=== PATIENT | female | born 1955 | race Caucasian/White ===

== ENCOUNTER 2020-01-07 10:03 | Outpatient (CLI) | payer MEDICARE ==
[2020-01-07 17:23] LABS: BASOPHILS # (AUTO) 0.1 10^3/uL (0.0-0.1); BASOPHILS % (AUTO) 0.9 %; EOSINOPHILS # (AUTO) 0.2 10^3/uL (0.0-0.7); EOSINOPHILS % (AUTO) 4.3 %; HGB - HEMOGLOBIN 10.9 g/dL (12.0-16.0); LYMPHOCYTES # (AUTO) 1.3 10^3/uL (1.5-3.5); LYMPHOCYTES % (AUTO) 23.6 %; MEAN CORPUSCULAR HGB CONC 28.7 g/dL (32.0-36.0); MEAN CORPUSCULAR VOLUME 94.1 fL (81.0-99.0); MEAN PLATELET VOLUME 10.6 fL (7.9-10.8); MONOCYTES # (AUTO) 0.4 10^3/uL (0.0-1.0); MONOCYTES % (AUTO) 7.5 %; NEUTROPHILS # (AUTO) 3.5 10^3/uL (1.5-6.6); NEUTROPHILS % (AUTO) 63.3 %; PLT - PLATELET COUNT 222 10^3/uL (130-450); RED BLOOD COUNT 4.04 10^6/uL (4.20-5.40); RED CELL DISTRIBUTION WIDTH 15.3 % (12.0-15.0); WHITE BLOOD COUNT 5.6 x10^3/uL (4.8-10.8)
[2020-01-07 17:54] LABS: ALBUMIN 4.1 g/dL (3.2-5.5); ALBUMIN/GLOBULIN RATIO 1.7 (1.0-2.2); ALKALINE PHOSPHATASE 36 IU/L (42-121); ALT ALANINE AMINOTRANSFERASE 13 IU/L (10-60); AST ASPARTATE AMINOTRANSFERASE 27 IU/L (10-42); BILIRUBIN,TOTAL 0.5 mg/dL (0.2-1.0); BUN - BLOOD UREA NITROGEN 15 mg/dL (6-20); CARBON DIOXIDE - CO2 36 mmol/L (21-32); CHLORIDE 95 mmol/L (101-111); CHOL/HDL RATIO 3.5 (<4.4); CHOLESTEROL 229 mg/dL; CREATININE 0.6 mg/dL (0.4-1.0); GFR - MDRD 100 (>89); GLUCOSE 148 mg/dL (70-100); HDL CHOLESTEROL 65 mg/dL; LDL CHOLESTEROL,CALCULATED 144 mg/dL; LDL/HDL RATIO 2.2 (<4.4); SODIUM 138 mmol/L (135-145); TOTAL PROTEIN 6.5 g/dL (6.7-8.2); VLDL CHOLESTEROL 20 mg/dL
[2020-01-07 18:35] LABS: HB2 TOTAL 10.9 g/dL; HEMOGLOBIN A1C 0.44 g/dL; HEMOGLOBIN A1C % 5.8 % (4.6-6.2)
[2020-01-07 19:31] LABS: PLATELET ESTIMATE, MANUAL NORMAL (130-450,000) (NORMAL); PLATELET MORPHOLOGY NORMAL APPEARANCE (NORMAL)
== END 2020-01-07 10:04 | disposition home or self-care (01) ==
LOC: LAB.S 10:03
PROVIDERS: ATTEND Internal Medicine
DX: R63.4 Abnormal weight loss (principal); Z79.899 Other long term (current) drug therapy; G47.09 Other insomnia; J30.9 Allergic rhinitis, unspecified; J44.9 Chronic obstructive pulmonary disease, unspecified
CPT/HCPCS: 36415; 80053; 80061; 81003; 83036; 83721; 84443; 85025

== ENCOUNTER 2020-07-14 08:21 | Outpatient (CLI) | payer MEDICARE ==
[2020-07-14 15:24] LABS: BASOPHILS # (AUTO) 0.1 10^3/uL (0.0-0.1); BASOPHILS % (AUTO) 0.9 %; EOSINOPHILS # (AUTO) 0.4 10^3/uL (0.0-0.7); EOSINOPHILS % (AUTO) 5.7 %; HGB - HEMOGLOBIN 11.5 g/dL (12.0-16.0); LYMPHOCYTES # (AUTO) 1.7 10^3/uL (1.5-3.5); LYMPHOCYTES % (AUTO) 24.1 %; MEAN CORPUSCULAR HEMOGLOBIN 26.1 pg (27.0-31.0); MEAN CORPUSCULAR HGB CONC 26.9 g/dL (32.0-36.0); MEAN CORPUSCULAR VOLUME 96.8 fL (81.0-99.0); MEAN PLATELET VOLUME 10.3 fL (7.9-10.8); MONOCYTES # (AUTO) 0.4 10^3/uL (0.0-1.0); MONOCYTES % (AUTO) 6.4 %; NEUTROPHILS # (AUTO) 4.3 10^3/uL (1.5-6.6); NEUTROPHILS % (AUTO) 62.6 %; PLT - PLATELET COUNT 235 10^3/uL (130-450); RED BLOOD COUNT 4.41 10^6/uL (4.20-5.40); WHITE BLOOD COUNT 6.9 x10^3/uL (4.8-10.8)
[2020-07-14 16:09] LABS: ALBUMIN 4.3 g/dL (3.2-5.5); ALBUMIN/GLOBULIN RATIO 1.4 (1.0-2.2); BILIRUBIN,TOTAL 0.5 mg/dL (0.2-1.0); CALCIUM 9.5 mg/dL (8.5-10.3); CREATININE 0.5 mg/dL (0.4-1.0); TOTAL PROTEIN 7.3 g/dL (6.7-8.2)
[2020-07-14 16:27] LABS: PLATELET ESTIMATE, MANUAL NORMAL (130-450,000) (NORMAL); PLATELET MORPHOLOGY NORMAL APPEARANCE (NORMAL); RBC MORPHOLOGY (MULTIPLE) 2+ HYPOCHROMASIA (NORMAL)
== END 2020-07-14 08:22 | disposition home or self-care (01) ==
LOC: LAB.S 08:21
PROVIDERS: ATTEND Family Medicine
DX: D50.9 Iron deficiency anemia, unspecified (principal); R63.4 Abnormal weight loss; E74.9 Disorder of carbohydrate metabolism, unspecified; Z79.899 Other long term (current) drug therapy; R06.02 Shortness of breath
CPT/HCPCS: 36415; 80053; 84443; 85025

== ENCOUNTER 2020-08-24 13:04 | Emergency (ER) | payer MEDICARE ==
--- NOTE | 2020-08-24 13:25 | ED Physician Documentation ---
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 No increase in chronic cough. No pedal edema or calf pain. Sent from the clinic because she had complained of chest pain. To me she denies chest pain but has some mild discomfort after coughing. Review of Systems Ten Systems: 10 systems reviewed and negative Constitutional: denies: Fever, Chills Nose: denies: Rhinorrhea / runny nose Cardiac: denies: Chest pain / pressure, Palpitations Respiratory: reports: Dyspnea, Cough GI: denies: Abdominal Pain PD PAST MEDICAL HISTORY - Present Medications Home Medications: Ambulatory Orders Medication Instructions Recorded Confirmed Budesonide/Formoterol Fumarate 1 DAILY 08/24/20 [Symbicort 160-4.5 Mcg Inhaler] Cetirizine HCl 1 tab DAILY 08/24/20 08/24/20 Citalopram Hydrobromide 10 mg DAILY 08/24/20 08/24/20 [Citalopram HBr] Ipratropium/Albuterol [Duoneb] 1 QID 08/24/20 Roflumilast [Daliresp] 500 mcg DAILY 08/24/20 08/24/20 Tiotropium [place] [Spiriva] 1 DAILY 08/24/20 predniSONE [Deltasone] 20 mg PO [id number] #21 tab 08/24/20 - Allergies Allergies/Adverse Reactions: Allergies Allergy/AdvReac Type Severity Reaction Status Date / Time No Known Drug Allergies Allergy Verified 08/24/20 13:17 PD ED PE NORMAL - Vitals Vital signs reviewed: Yes - General General: Alert and oriented X 3, Other (Appears chronically ill, but does not have labored breathing despite significant hypoxemia on 2 L nasal cannula) - HEENT HEENT: PERRL, EOMI - Neck Neck: Supple, no meningeal sign, No bony TTP - Cardiac Cardiac: RRR, No murmur - Respiratory Respiratory: No respiratory distress, Other (Quite diminished throughout) - Abdomen Abdomen: Non tender - Back Back: No CVA TTP, No spinal TTP - Derm Derm: Normal color, Warm and dry - Extremities Extremities: No edema, No calf tenderness / cord - Neuro Neuro: Alert and oriented X 3, Normal speech Results - Vitals Vitals: Vital Signs - 24 hr 08/24/20 08/24/20 13:11 13:45 Temperature 37.0 C Heart Rate 97 87 Respiratory 18 24 Rate Blood Pressure 81/60 L O2 Saturation 70 L Oxygen O2 Source Nasal cannula - EKG (time done) 1338 Rate: Rate (enter#) (84) Rhythm: NSR, LAE, ADEOLA [place]: Normal Ischemia: Other (Right ventricular hypertrophy with flat to slightly inverted T waves in the anterior precordium and lateral leads.) Computer interpretation: Agree with computer - Labs Labs: Laboratory Tests 08/24/20 08/24/20 08/24/20 13:40 13:40 13:40 WBC 6.1 RBC 3.89 L Hgb 10.6 L Hct 38.1 MCV 97.9 MCH 27.2 MCHC 27.8 L RDW 15.4 H Plt Count 238 MPV 10.0 Neut # (Auto) 4.3 Lymph # (Auto) 1.2 L [place] # (Auto) 0.5 Eos # (Auto) 0.1 Baso # (Auto) 0.0 Absolute Nucleated RBC 0.00 Nucleated RBC % 0.0 Manual Slide Review Indicated WBC Morphology NORMAL APPEARANCE Platelet Estimate NORMAL (130-450,000) Platelet Morphology NORMAL APPEARANCE RBC Morph Micro Appear 1+ HYPOCHROMASIA VBG pH VBG pCO2 VBG pO2 VBG HCO3 VBG Total CO2 VBG O2 Saturation VBG Base Excess Sodium 144 Potassium 3.6 Chloride 86 L Carbon Dioxide > 45 H* Anion Gap 9.0 BUN 21 H Creatinine 0.5 Estimated GFR (MDRD) 124 Glucose 130 H Calcium 9.9 Total Bilirubin 0.5 AST 42 ALT 86 H Alkaline Phosphatase 47 Troponin I High Sens 7.7 B-Natriuretic Peptide Total Protein 6.3 L Albumin 3.9 Globulin 2.4 Albumin/Globulin Ratio 1.6 08/24/20 08/24/20 13:40 13:40 WBC RBC Hgb Hct MCV MCH MCHC RDW Plt Count MPV Neut # (Auto) Lymph # (Auto) [place] # (Auto) Eos # (Auto) Baso # (Auto) Absolute Nucleated RBC Nucleated RBC % Manual Slide Review WBC Morphology Platelet Estimate Platelet Morphology RBC Morph Micro Appear VBG pH 7.335 VBG pCO2 96.3 H VBG pO2 44.4 VBG HCO3 50.2 H VBG Total CO2 53.2 H VBG O2 Saturation 80.7 H VBG Base Excess 20.0 H Sodium Potassium Chloride Carbon Dioxide Anion Gap BUN Creatinine Estimated GFR (MDRD) Glucose Calcium Total Bilirubin AST ALT Alkaline Phosphatase Troponin I High Sens B-Natriuretic Peptide 48 Total Protein Albumin Globulin Albumin/Globulin Ratio - Rads (name of study) CT chest Radiology: EMP read contemporaneously (No PE, likely pulmonary hypertension, emphysema, borderline enlarged mediastinal lymph nodes.) PD MEDICAL DECISION MAKING - ED course ED course: 64-year-old woman with severe COPD presents with increased shortness of breath. Very distant lung sounds. Did get some improvement with nebulizer here and also received IV steroids. No evidence of infection looking at labs or CT. No evidence of PE. She had a significant oxygen requirement. Her usual oxygen requirement is 2 L, she needed 4 L reliably here. I recommended admission for further evaluation and treatment which she refused. Her son was present for these conversations. She understands she is welcome to return at any time if worsening. Departure - Departure Disposition: 01 Home, Self Care Clinical Impression: Severe chronic obstructive pulmonary disease Condition: Good Record reviewed to determine appropriate education?: Yes Instructions: ED COPD Flare Prescriptions: predniSONE [Deltasone] 20 mg PO [id number] #21 tab Comments: As discussed I have recommended admission today given your increased oxygen requirements. Return anytime if you change your mind or worsen. Follow-up with primary care as soon as possible.
[2020-08-24] MEDS ORDERED: IPRATROPIUM/ALBUTEROL 3 ML NEB INH STA (13:32)
[2020-08-24] MEDS ORDERED: SODIUM CHLORIDE 0.9% 1,000 ML IV STA (13:32)
[2020-08-24] MEDS ORDERED: methylPREDNISolone SUCCINATE 125 MG/2 ML VIAL IVP STA (13:32)
[2020-08-24] MEDS ORDERED: IOVERSOL 320 100 ML VIAL IVP ONE ×2 (13:47→19:07)
[2020-08-24 14:15] LABS: BASOPHILS % (AUTO) 0.7 %; EOSINOPHILS # (AUTO) 0.1 10^3/uL (0.0-0.7); HGB - HEMOGLOBIN 10.6 g/dL (12.0-16.0); LYMPHOCYTES # (AUTO) 1.2 10^3/uL (1.5-3.5); MEAN CORPUSCULAR HEMOGLOBIN 27.2 pg (27.0-31.0); MEAN CORPUSCULAR HGB CONC 27.8 g/dL (32.0-36.0); MEAN CORPUSCULAR VOLUME 97.9 fL (81.0-99.0); MONOCYTES # (AUTO) 0.5 10^3/uL (0.0-1.0); MONOCYTES % (AUTO) 7.6 %; NEUTROPHILS # (AUTO) 4.3 10^3/uL (1.5-6.6); NEUTROPHILS % (AUTO) 70.5 %; PLT - PLATELET COUNT 238 10^3/uL (130-450); RED BLOOD COUNT 3.89 10^6/uL (4.20-5.40); RED CELL DISTRIBUTION WIDTH 15.4 % (12.0-15.0); WHITE BLOOD COUNT 6.1 x10^3/uL (4.8-10.8)
[2020-08-24 14:19] LABS: VBG PCO2 96.3 mmHg (41-51); VBG PH 7.335 (7.31-7.41); VBG PO2 44.4 mmHg (25-47); VBG TOTAL CO2 53.2 mmol/L (24-29)
[2020-08-24 14:23] LABS: PLATELET ESTIMATE, MANUAL NORMAL (130-450,000) (NORMAL); PLATELET MORPHOLOGY NORMAL APPEARANCE (NORMAL); RBC MORPHOLOGY (MULTIPLE) 1+ HYPOCHROMASIA (NORMAL)
[2020-08-24 14:26] LABS: ALBUMIN 3.9 g/dL (3.2-5.5); ALBUMIN/GLOBULIN RATIO 1.6 (1.0-2.2); ALKALINE PHOSPHATASE 47 IU/L (42-121); ALT ALANINE AMINOTRANSFERASE 86 IU/L (10-60); AST ASPARTATE AMINOTRANSFERASE 42 IU/L (10-42); BILIRUBIN,TOTAL 0.5 mg/dL (0.2-1.0); BUN - BLOOD UREA NITROGEN 21 mg/dL (6-20); CALCIUM 9.9 mg/dL (8.5-10.3); CHLORIDE 86 mmol/L (101-111); CREATININE 0.5 mg/dL (0.4-1.0); GLUCOSE 130 mg/dL (70-100); SODIUM 144 mmol/L (135-145); TOTAL PROTEIN 6.3 g/dL (6.7-8.2)
[2020-08-24 14:33] LABS: CARBON DIOXIDE - CO2 > 45 mmol/L (21-32)
--- NOTE | 2020-08-24 15:20 | CT Report ---
PROCEDURE: ANGIO CHEST W/WO INDICATIONS: dyspnea/hypoxemia, pe protocol CONTRAST: IV CONTRAST: Optiray 320 ml: 50 PO CONTRAST: *NO PO CONTRAST TECHNIQUE: After the administration of intravenous contrast, 2 mm thick sections acquired from the pulmonary api susanna to the posterior costophrenic angles. 3-dimensional maximum intensity projection (MIP) coronal a nd sagittal reformats were then acquired through the thorax. For radiation dose reduction, the follow ing was used: automated exposure control, adjustment of mA and/or kV according to patient size. COMPARISON: None FINDINGS: Image quality: Excellent. Pulmonary arteries: Pulmonary arteries demonstrate no intraluminal filling defects to suggest centr al pulmonary embolism. Slight prominent main pulmonary artery is seen measures up to 3 cm in diamete r at the level of bifurcation. Lungs and pleura: There is moderate centrilobular emphysema. Biapical scarring is seen. Scattered sca rring/atelectasis in periphery of bilateral lung corley also noted. No pleural effusions or pneumotho rax. Central and peripheral airways are patent. Mediastinum: Heart size is normal, without pericardial effusion. Mild enlarged mediastinal lymph nod es are seen measures up to 1 cm in short axis diameter precarinal space. Moderate atherosclerotic dis ease is seen. Thoracic aorta is normal in caliber and enhancement. Esophagus is normal in caliber, w ithout hiatal hernia. Bones and chest wall: No suspicious bony lesions. Ribs and thoracic spine appear intact throughout. The thyroid is normal. No axillary or supraclavicular adenopathy. Abdomen: Visualized upper abdominal solid organs appear normal in the early arterial phase of enhanc ement. IMPRESSION: 1. No evidence of pulmonary emboli. No thoracic aortic aneurysm or dissection. 2. Mildly prominent main pulmonary artery size, suggest clinical correlation for mild pulmonary vascu lar hypertension. 3. Moderate centrilobular emphysema and chronic interstitial lung parenchymal changes. No focal infil trate. No pleural effusion or pneumothorax. Airway is patent. 4. Borderline enlarged mediastinal lymph nodes measures up to 1 cm in size. Finding may represent mil d reactive lymphadenopathy. Moderate atherosclerotic disease. Reviewed by: Noah Greenwood MD on 08/24/2020 2:18 PM [facility] Approved by: Noah Greenwood MD on 08/24/2020 2:18 PM [facility] Station ID: [id number]
[2020-08-24 15:51] VITALS: BP 109/64
== END 2020-08-24 16:02 | disposition home or self-care (01) ==
LOC: ED 13:04
DX: J43.2 Centrilobular emphysema (principal); R09.02 Hypoxemia; I51.7 Cardiomegaly; Z99.81 Dependence on supplemental oxygen
CPT/HCPCS: 36415; 71275; 80053; 82803; 83880; 84484; 85025; 93005; 94640; 96374; 99284; Q9967

== ENCOUNTER 2020-12-02 12:20 | Outpatient (CLI) | payer MEDICARE ==
[2020-12-02 14:54] LABS: BASOPHILS % (AUTO) 0.7 %; EOSINOPHILS # (AUTO) 0.2 10^3/uL (0.0-0.7); EOSINOPHILS % (AUTO) 3.6 %; HGB - HEMOGLOBIN 11.1 g/dL (12.0-16.0); LYMPHOCYTES # (AUTO) 1.6 10^3/uL (1.5-3.5); LYMPHOCYTES % (AUTO) 26.4 %; MEAN CORPUSCULAR HEMOGLOBIN 27.3 pg (27.0-31.0); MEAN CORPUSCULAR HGB CONC 28.3 g/dL (32.0-36.0); MEAN CORPUSCULAR VOLUME 96.6 fL (81.0-99.0); MEAN PLATELET VOLUME 10.2 fL (7.9-10.8); MONOCYTES # (AUTO) 0.6 10^3/uL (0.0-1.0); MONOCYTES % (AUTO) 9.2 %; NEUTROPHILS # (AUTO) 3.7 10^3/uL (1.5-6.6); NEUTROPHILS % (AUTO) 59.9 %; PLT - PLATELET COUNT 199 10^3/uL (130-450); RED BLOOD COUNT 4.06 10^6/uL (4.20-5.40); RED CELL DISTRIBUTION WIDTH 14.6 % (12.0-15.0); WHITE BLOOD COUNT 6.1 x10^3/uL (4.8-10.8)
[2020-12-02 15:34] LABS: PLATELET ESTIMATE, MANUAL NORMAL (130-450,000) (NORMAL); PLATELET MORPHOLOGY NORMAL APPEARANCE (NORMAL)
== END 2020-12-02 12:21 | disposition home or self-care (01) ==
LOC: LAB.S 12:20
PROVIDERS: ATTEND Family Medicine
DX: D50.9 Iron deficiency anemia, unspecified (principal)
CPT/HCPCS: 36415; 85025

== ENCOUNTER 2021-01-05 06:25 | Emergency (ER) | payer MEDICARE ==
--- NOTE | 2021-01-05 07:57 | ED Physician Documentation ---
History of Present Illness - Stated complaint Stated Complaint: SOA - Chief complaint Chief Complaint: Resp - History obtained from History obtained from: Patient, Family - History of Present Illness Timing: Today Pain level max: 0 Pain level now: 0 - Additonal information Additional information: Patient is a 65-year-old female with end-stage COPD. Usually on 4 L of oxygen at home. She is accompanied by her son today. They checked her finger pulse oximeter today and it read 35. Patient states that she felt her normal. Was not having any difficulty breathing. No coughing. Nothing made it better or worse. The son states she did not appear blue. Her oxygen tank is full. Has a concentrator at home as well. No fevers. No cough. No increased work of breathing. Is not currently on steroids. Review of Systems Constitutional: denies: Fever, Chills GI: denies: Vomiting, Diarrhea Skin: denies: Rash Musculoskeletal: denies: Neck pain, Back pain Neurologic: denies: Headache PD PAST MEDICAL HISTORY - Past Medical History Past Medical History: Yes Respiratory: COPD - Past Surgical History Past Surgical History: Yes /[employer]: Mastectomy - Present Medications Home Medications: Ambulatory Orders Medication Instructions Recorded Confirmed Budesonide/Formoterol Fumarate 1 DAILY 08/24/20 [Symbicort 160-4.5 Mcg Inhaler] Cetirizine HCl 1 tab DAILY 08/24/20 08/24/20 Citalopram Hydrobromide 10 mg DAILY 08/24/20 08/24/20 [Citalopram HBr] Ipratropium/Albuterol [Duoneb] 1 QID 08/24/20 Roflumilast [Daliresp] 500 mcg DAILY 08/24/20 08/24/20 Tiotropium [place] [Spiriva] 1 DAILY 08/24/20 predniSONE [Deltasone] 10 mg PO [id number] #42 tab 01/05/21 - Allergies Allergies/Adverse Reactions: Allergies Allergy/AdvReac Type Severity Reaction Status Date / Time No Known Drug Allergies Allergy Verified 08/24/20 13:17 - Social History Does the pt smoke?: Yes Smoking Status: Current every day smoker PD ED PE NORMAL - Vitals Vital signs reviewed: Yes - General General: Alert and oriented X 3, No acute distress, Other (thin, Frail female) - HEENT HEENT: PERRL, Moist mucous membranes - Neck Neck: Supple, no meningeal sign - Cardiac Cardiac: RRR - Respiratory Respiratory: No respiratory distress, Other (Diminished breath sounds bilaterally but clear) - Abdomen Abdomen: Soft, Non tender, Non distended - Derm Derm: Warm and dry - Neuro Neuro: Alert and oriented X 3 - Psych Psych: Normal mood, Normal affect Results - Vitals Vitals: Vital Signs - 24 hr 01/05/21 01/05/21 01/05/21 06:27 06:51 08:18 Temperature 36.2 C L 36.2 C L Heart Rate 111 H 108 H Respiratory 22 25 H Rate Blood Pressure 99/56 L 119/63 O2 Saturation 100 92 01/05/21 01/05/21 01/05/21 08:58 10:00 11:00 Temperature Heart Rate 117 H 96 98 Respiratory 18 20 Rate Blood Pressure 118/59 L O2 Saturation 90 L 93 97 Oxygen O2 Source Nasal cannula Oxygen Flow Rate 3 - Labs Labs: Laboratory Tests 01/05/21 01/05/21 01/05/21 08:05 08:05 08:05 WBC 8.3 RBC 4.15 L Hgb 11.1 L Hct 41.0 MCV 98.8 MCH 26.7 L MCHC 27.1 L RDW 14.5 Plt Count 175 MPV 9.7 Neut # (Auto) 7.1 H Lymph # (Auto) 0.7 L [place] # (Auto) 0.4 Eos # (Auto) 0.1 Baso # (Auto) 0.0 Absolute Nucleated RBC 0.00 Nucleated RBC % 0.0 Manual Slide Review Indicated Platelet Estimate NORMAL (130-450,000) Platelet Morphology NORMAL APPEARANCE RBC Morph Micro Appear 1+ STOMATOCYTES Sodium 143 Potassium 5.1 H Chloride 89 L Carbon Dioxide 45 H* Anion Gap 9.0 BUN 22 H Creatinine 0.6 Estimated GFR (MDRD) 100 Glucose 114 H Lactic Acid 0.9 Calcium 10.0 Total Bilirubin 0.4 AST 27 ALT 15 Alkaline Phosphatase 59 Total Protein 7.5 Albumin 4.6 Globulin 2.9 Albumin/Globulin Ratio 1.6 Lipase 27 Urine Color Urine Clarity Urine pH Ur Specific [place] Urine Protein Urine Glucose (UA) Urine Ketones Urine Occult Blood Urine Nitrite Urine Bilirubin Urine Urobilinogen Ur Leukocyte Esterase Ur Microscopic Review Urine Culture Comments 01/05/21 10:44 WBC RBC Hgb Hct MCV MCH MCHC RDW Plt Count MPV Neut # (Auto) Lymph # (Auto) [place] # (Auto) Eos # (Auto) Baso # (Auto) Absolute Nucleated RBC Nucleated RBC % Manual Slide Review Platelet Estimate Platelet Morphology RBC Morph Micro Appear Sodium Potassium Chloride Carbon Dioxide Anion Gap BUN Creatinine Estimated GFR (MDRD) Glucose Lactic Acid Calcium Total Bilirubin AST ALT Alkaline Phosphatase Total Protein Albumin Globulin Albumin/Globulin Ratio Lipase Urine Color YELLOW Urine Clarity CLEAR Urine pH 6.0 Ur Specific [place] 1.020 Urine Protein NEGATIVE Urine Glucose (UA) NEGATIVE Urine Ketones NEGATIVE Urine Occult Blood NEGATIVE Urine Nitrite NEGATIVE Urine Bilirubin NEGATIVE Urine Urobilinogen 0.2 (NORMAL) Ur Leukocyte Esterase NEGATIVE Ur Microscopic Review NOT INDICATED Urine Culture Comments NOT INDICATED - Rads (name of study) cxr Radiology: Prelim report reviewed, EMP read contemporaneously, See rad report PD MEDICAL DECISION MAKING - ED course Complexity details: reviewed old records, reviewed results, re-evaluated patient, considered differential, d/w patient, d/w family ED course: 65-year-old female presents to the emergency department with hypoxia at home today. No hypoxia here. Ambulated in the emergency department and did not become hypoxic with her usual home oxygen. No acute laboratory findings. She did appear slightly dehydrated so she was given IV fluids. We will place her on a short course of steroids as well. No evidence of infection or pneumonia. Patient is well-appearing, nontoxic. Son is comfortable taking her home. Patient would like to go home. Patient and family counseled regarding signs and symptoms for which I believe and urgent re-evaluation would be necessary. Patient with good understanding of and agreement to plan and is comfortable going home at this time This document was made in part using voice recognition software. While efforts are made to proofread this document, sound alike and grammatical errors may occur. IMPRESSION: No acute cardiopulmonary abnormality. Hyperexpanded lungs can be seen in the setting of COPD. There is no significant discrepancy when compared with the overnight teleradiology report. Departure - Departure Disposition: 01 Home, Self Care Clinical Impression: Severe chronic obstructive pulmonary disease Condition: Good Instructions: ED COPD Flare Follow-Up: Tam Bhatti [Primary Care Provider] - Within 1 week Prescriptions: predniSONE [Deltasone] 10 mg PO [id number] #42 tab Comments: Continue her current medications at home. Return if you worsen. Use the prednisone as prescribed. Discharge Date/Time: 01/05/21 11:15
--- NOTE | 2021-01-05 08:05 | XRAY Report ---
PROCEDURE: Chest 1 View X-Ray INDICATIONS: SOA TECHNIQUE: One view of the chest was acquired. COMPARISON: CTA chest 08/24/2020 FINDINGS: Surgical changes and devices: None. Lungs and pleura: No pleural effusions or pneumothorax. Lungs are hyperexpanded and clear. Mediastinum: Mediastinal contours appear normal. Heart size is normal. The central pulmonary arter ies appear mildly enlarged, similar to the CT from 08/24/2020. Bones and chest wall: No suspicious bony lesions. Overlying soft tissues appear unremarkable. IMPRESSION: No acute cardiopulmonary abnormality. Hyperexpanded lungs can be seen in the setting of COPD. There is no significant discrepancy when compared with the overnight teleradiology report. Reviewed by: Fly Pate MD on 01/05/2021 8:03 AM [facility] Approved by: Fly Pate MD on 01/05/2021 8:03 AM [facility] Station ID: [id number]
[2021-01-05 08:15] LABS: BASOPHILS % (AUTO) 0.4 %; EOSINOPHILS # (AUTO) 0.1 10^3/uL (0.0-0.7); EOSINOPHILS % (AUTO) 0.6 %; HGB - HEMOGLOBIN 11.1 g/dL (12.0-16.0); LYMPHOCYTES # (AUTO) 0.7 10^3/uL (1.5-3.5); LYMPHOCYTES % (AUTO) 8.1 %; MEAN CORPUSCULAR HEMOGLOBIN 26.7 pg (27.0-31.0); MEAN CORPUSCULAR HGB CONC 27.1 g/dL (32.0-36.0); MEAN CORPUSCULAR VOLUME 98.8 fL (81.0-99.0); MEAN PLATELET VOLUME 9.7 fL (7.9-10.8); MONOCYTES # (AUTO) 0.4 10^3/uL (0.0-1.0); MONOCYTES % (AUTO) 5.1 %; NEUTROPHILS # (AUTO) 7.1 10^3/uL (1.5-6.6); NEUTROPHILS % (AUTO) 85.4 %; PLT - PLATELET COUNT 175 10^3/uL (130-450); RED BLOOD COUNT 4.15 10^6/uL (4.20-5.40); RED CELL DISTRIBUTION WIDTH 14.5 % (12.0-15.0); WHITE BLOOD COUNT 8.3 x10^3/uL (4.8-10.8)
[2021-01-05 08:18] LABS: SLIDE REVIEW? Indicated
[2021-01-05 08:38] LABS: PLATELET ESTIMATE, MANUAL NORMAL (130-450,000) (NORMAL); PLATELET MORPHOLOGY NORMAL APPEARANCE (NORMAL)
[2021-01-05 08:40] LABS: ALBUMIN 4.6 g/dL (3.2-5.5); ALBUMIN/GLOBULIN RATIO 1.6 (1.0-2.2); BILIRUBIN,TOTAL 0.4 mg/dL (0.2-1.0); CREATININE 0.6 mg/dL (0.4-1.0); POTASSIUM 5.1 mmol/L (3.5-5.0); TOTAL PROTEIN 7.5 g/dL (6.7-8.2)
[2021-01-05] MEDS ORDERED: SODIUM CHLORIDE 0.9% 1,000 ML IV STA (08:58)
[2021-01-05] MEDS ORDERED: methylPREDNISolone SUCCINATE 125 MG/2 ML VIAL IVP STA (08:58)
[2021-01-05 10:49] LABS: BILIRUBIN,URINE NEGATIVE (NEGATIVE); CLARITY,URINE CLEAR (CLEAR); GLUCOSE, URINE (UA) NEGATIVE (NEGATIVE); KETONES,URINE (UA) NEGATIVE (NEGATIVE); LEUKOCYTE ESTERASE, URINE NEGATIVE (NEGATIVE); NITRITE,URINE NEGATIVE (NEGATIVE); OCCULT BLOOD,URINE NEGATIVE (NEGATIVE); PROTEIN,URINE NEGATIVE (NEGATIVE); UROBILINOGEN,URINE 0.2 (NORMAL) E.U./dL (NORMAL)
[2021-01-05 11:31] VITALS: BP 118/59
== END 2021-01-05 11:15 | disposition home or self-care (01) ==
LOC: ED 06:25
DX: J44.9 Chronic obstructive pulmonary disease, unspecified (principal); E86.0 Dehydration; F17.200 Nicotine dependence, unspecified, uncomplicated; Z99.81 Dependence on supplemental oxygen
CPT/HCPCS: 36415; 80053; 81001; 81003; 83605; 83690; 85025; 85610; 85730; 87040; 87086; 96374; 99284

== ENCOUNTER 2021-03-14 17:00 | Outpatient (CLI) | payer MEDICARE | END 2021-03-14 17:01 | disposition home or self-care (01) | LOC: COV 17:00 | PROVIDERS: ATTEND Family Medicine | DX: Z01.812 Encounter for preprocedural laboratory examination (principal); Z20.822 Contact with and (suspected) exposure to COVID-19 ==

== ENCOUNTER 2021-11-16 21:06 | Outpatient (CLI) | payer MEDICARE | END 2021-11-16 23:59 | disposition EMS.NT | LOC: EMS 21:06 | DX: F41.9 Anxiety disorder, unspecified (principal); R06.02 Shortness of breath ==

== ENCOUNTER 2022-02-15 11:20 | Outpatient (CLI) | payer MEDICARE | END 2022-02-15 11:21 | disposition critical access hospital (66) | LOC: EMS 11:20 | DX: R06.02 Shortness of breath (principal) | CPT/HCPCS: A0425; A0427 ==

== ENCOUNTER 2022-02-15 11:47 | Emergency (ER) | payer MEDICARE ==
[2022-02-15] MEDS ORDERED: DEXAMETHASONE 10 MG/ML VIAL IV STA (11:55)
[2022-02-15] MEDS ORDERED: IPRATROPIUM/ALBUTEROL 3 ML NEB INH STA (11:55)
[2022-02-15] MEDS ORDERED: SODIUM CHLORIDE 0.9% 1,000 ML IV STA (11:55)
--- NOTE | 2022-02-15 11:58 | ED Physician Documentation ---
History of Present Illness - Stated complaint Stated Complaint: HYPOXIA - History obtained from History obtained from: Patient - Additonal information Additional information: The patient comes to the emergency department with chief complaint of shortness of breath. The patient has a history of COPD and normally is on 3 L of oxygen per nasal cannula at her home in assisted living. She was found this morning to be hypoxic at 55% by staff and medics state when they arrived, the patient was found to be at 58%. The patient states she did feel short of breath at that time, although medics state that she was alert and talking. They put her on 6 L in route and states that her oxygen level has slowly risen to the 90s in route. They do not think that the oxygen was off or malfunctioning. They state that they had a good waveform and they got the 58% reading. Patient states that she did feel increased shortness of breath about the time the medics were summoned, and that she feels better now. She states she has felt increased shortness of breath for the last 3 days, especially with ambulation. She has not had a cough or fever. She does not smoke any longer. She denies chest pain or palpitations. No other complaints at this time. Review of Systems Ten Systems: 10 systems reviewed and negative Constitutional: reports: Reviewed and negative Eyes: reports: Reviewed and negative Ears: reports: Reviewed and negative Nose: reports: Reviewed and negative Throat: reports: Reviewed and negative Cardiac: reports: Reviewed and negative Respiratory: reports: Dyspnea GI: reports: Reviewed and negative : reports: Reviewed and negative Skin: reports: Reviewed and negative Musculoskeletal: reports: Reviewed and negative Neurologic: reports: Reviewed and negative Psychiatric: reports: Reviewed and negative Endocrine: reports: Reviewed and negative Immunocompromised: reports: Reviewed and negative PD PAST MEDICAL HISTORY - Past Medical History Respiratory: COPD - Past Surgical History Past Surgical History: Yes /[employer]: Mastectomy - Present Medications Home Medications: Ambulatory Orders Medication Instructions Recorded Confirmed Budesonide/Formoterol Fumarate 2 puffs PO DAILY 08/24/20 02/15/22 [Symbicort 160-4.5 Mcg Inhaler] Cetirizine HCl 1 tab DAILY 08/24/20 08/24/20 Citalopram Hydrobromide 10 mg DAILY 08/24/20 02/15/22 [Citalopram HBr] Ipratropium/Albuterol [Duoneb] 1 puffs PO QID 08/24/20 02/15/22 Roflumilast [Daliresp] 500 mcg PO DAILY 08/24/20 02/15/22 Tiotropium [place] [Spiriva] 1 DAILY 08/24/20 predniSONE [Deltasone] 10 mg PO [id number] #42 tab 01/05/21 Melatonin 1 mg PO HS 02/15/22 02/15/22 Pnv No.95/Ferrous Fum/Folic AC 1 tab PO DAILY 02/15/22 02/15/22 [ Caplet] Tiotropium [place] [Spiriva] 1 cap PO DAILY 02/15/22 02/15/22 predniSONE [Deltasone] 60 mg PO DAILY 5 Days #15 tablet 02/15/22 - Allergies Allergies/Adverse Reactions: Allergies Allergy/AdvReac Type Severity Reaction Status Date / Time No Known Drug Allergies Allergy Verified 02/15/22 11:59 - Social History Does the pt smoke?: Yes Smoking Status: Current every day smoker PD ED PE NORMAL - Vitals Vital signs reviewed: Yes - General General: Alert and oriented X 3, Well developed/nourished, Other (Mildly labored respirations; patient appears chronically ill but otherwise not acutely so.) - HEENT HEENT: Atraumatic, PERRL, EOMI, Moist mucous membranes - Neck Neck: Supple, no meningeal sign - Cardiac Cardiac: RRR, No murmur - Respiratory Respiratory: Clear bilaterally, Other (Mildly labored respirations. Borderline tachypnea. No wheezes rhonchi or rales. 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, Normal speech - Psych Psych: Normal mood, Normal affect Results - Vitals Vitals: Vital Signs - 24 hr 02/15/22 02/15/22 02/15/22 11:46 12:06 12:16 Temperature 36.3 C L Heart Rate 106 H 108 H 104 H Respiratory 21 17 16 Rate Blood Pressure 114/64 114/68 O2 Saturation 96 02/15/22 02/15/22 02/15/22 12:19 12:27 12:30 Temperature Heart Rate 105 H 99 Respiratory 15 17 Rate Blood Pressure 114/68 114/68 O2 Saturation 81 L 97 95 02/15/22 02/15/22 13:14 13:47 Temperature Heart Rate 113 H 96 Respiratory 20 20 Rate Blood Pressure 115/56 L 111/62 O2 Saturation 74 L 99 Oxygen O2 Source Room air Oxygen Flow Rate 3 - Labs Labs: Laboratory Tests 02/15/22 02/15/22 02/15/22 12:07 12:07 12:07 WBC 8.0 RBC 3.40 L Hgb 9.7 L Hct 34.0 L MCV 100.0 H MCH 28.5 MCHC 28.5 L RDW 14.3 Plt Count 194 MPV 9.7 Neut # (Auto) 5.9 Lymph # (Auto) 1.4 L [place] # (Auto) 0.6 Eos # (Auto) 0.1 Baso # (Auto) 0.0 Absolute Nucleated RBC 0.00 Nucleated RBC % 0.0 Manual Slide Review Indicated Platelet Estimate NORMAL (130-450,000) Platelet Morphology NORMAL APPEARANCE RBC Morph Micro Appear 2+ HYPOCHROMASIA Sodium 141 Potassium 4.0 Chloride 87 L Carbon Dioxide 45 H* Anion Gap 9.0 BUN 18 Creatinine 0.5 Estimated GFR (MDRD) 123 Glucose 119 H Calcium 9.8 Total Bilirubin 0.4 AST 30 ALT 18 Alkaline Phosphatase 48 Total Protein 6.2 L Albumin 3.5 Globulin 2.7 Albumin/Globulin Ratio 1.3 Nasal Adenovirus (PCR) NOT DETECTED Nasal B. parapertussis DNA (PCR) NOT DETECTED Nasal Coronavir 229E PCR NOT DETECTED Nasal Coronavir HKU1 PCR NOT DETECTED Nasal Coronavir NL63 PCR NOT DETECTED Nasal Coronavir OC43 PCR NOT DETECTED Nasal Enterovir/Rhinovir PCR NOT DETECTED Nasal Influenza B PCR NOT DETECTED Nasal Influenza A PCR NOT DETECTED Nasal Parainfluen 1 PCR NOT DETECTED Nasal Parainfluen 2 PCR NOT DETECTED Nasal Parainfluen 3 PCR NOT DETECTED Nasal Parainfluen 4 PCR NOT DETECTED Nasal RSV (PCR) NOT DETECTED Nasal B.pertussis DNA PCR NOT DETECTED Nasal C.pneumoniae (PCR) NOT DETECTED [place] Human Metapneumo PCR NOT DETECTED Nasal M.pneumoniae (PCR) NOT DETECTED Nasal SARS-CoV-2 (PCR) NOT DETECTED - Rads (name of study) Chest x-ray Radiology: Final report received, EMP read indepedently, See rad report (No acute disease) PD MEDICAL DECISION MAKING - ED course Complexity details: reviewed results, re-evaluated patient, considered differential, d/w patient ED course: The patient upon arrival was on 6 L of oxygen per nasal cannula, and had oxygen saturation of 100% with a good waveform. She was cut down to 3 L, which was reported to be her normal oxygen level and remained 100%. She was then cut down to 2 L. She was worked up with labs, EKG, and chest x-ray. The patient's labs were overall unremarkable. Her EKG showed normal sinus rhythm and chest x-ray showed changes consistent with chronic COPD but no acute findings. Patient was found to be feeling nearly at baseline, with oxygen saturation 100% on 2 L of oxygen per nasal cannula. She was able to eat and drink in the emergency department and requested to go home. I felt this was reasonable, but then patient ambulated to the bathroom and had a significant desaturation down to around 50% her 2 L. The patient remained alert and conversant, though displayed labored respirations with pursed lip breathing. Her oxygen was increased to 6 L and she did slowly climb back into the upper 90s. The patient's son had arrived to visit her and patient insisted that she wants to go home. The son states she has been having these episodes with ambulation for a while, and normally is quite winded after even short bouts of ambulation around her apartment. The patient states that she is easily able to get help whenever she wants it and does not wish to stay in the hospital. I have discussed with her that she needs to call for assistance prior to going to the bathroom and that she should also bump her oxygen up to 5 or 6 L for a couple of minutes before getting up to walk. She should keep it at this level both during what of her activity as she is doing and then for 10 or 15 minutes afterward or until she is feeling better. The patient should have a very low threshold for returning to the emergency department. Departure - Departure Disposition: 01 Home, Self Care Clinical Impression: COPD exacerbation, End stage COPD Condition: Stable Instructions: ED COPD Flare Prescriptions: predniSONE [Deltasone] 60 mg PO DAILY 5 Days #15 tablet Comments: Your labs and x-ray look good overall. Your x-ray shows chronic changes which are consistent with your underlying COPD, but nothing that is acute or worrisome at this point in time. It is not clear what is caused you to have recent progression of your COPD symptoms, though could be somewhat related to your underlying allergies. You have been offered admission to the hospital but have declined this and preferred to go home. You should be sure to use your nebulizer machine every 4 hours during waking hours. Additionally, you should turn your oxygen up to 5 to 6 L for at least a couple of minutes prior to going to the bathroom or doing some other kind of physical exertion. You should keep it at this level not only during the activity but also for at least 10 or 15 minutes afterward or until you are feeling back to normal. If you continue to feel that your COPD is worse, you will need to talk to your doctor about what other options there are to help you to be more comfortable and functional at home. If you become short of breath after activity and you just feel as though you are not recovering at all, you should return to the emergency department. Your prescription has been electronically transmitted to [facility] pharmacy in [place]. Discharge Date/Time: 02/15/22 14:19
[2022-02-15 12:14] LABS: BASOPHILS % (AUTO) 0.5 %; EOSINOPHILS # (AUTO) 0.1 10^3/uL (0.0-0.7); HGB - HEMOGLOBIN 9.7 g/dL (12.0-16.0); LYMPHOCYTES # (AUTO) 1.4 10^3/uL (1.5-3.5); LYMPHOCYTES % (AUTO) 17.4 %; MEAN CORPUSCULAR HEMOGLOBIN 28.5 pg (27.0-31.0); MEAN CORPUSCULAR HGB CONC 28.5 g/dL (32.0-36.0); MEAN PLATELET VOLUME 9.7 fL (7.9-10.8); MONOCYTES # (AUTO) 0.6 10^3/uL (0.0-1.0); MONOCYTES % (AUTO) 7.6 %; NEUTROPHILS # (AUTO) 5.9 10^3/uL (1.5-6.6); NEUTROPHILS % (AUTO) 73.1 %; PLT - PLATELET COUNT 194 10^3/uL (130-450); RED CELL DISTRIBUTION WIDTH 14.3 % (12.0-15.0)
[2022-02-15 12:16] LABS: SLIDE REVIEW? Indicated
--- NOTE | 2022-02-15 12:21 | XRAY Report ---
PROCEDURE: Chest 1 View X-Ray INDICATIONS: chest pain TECHNIQUE: One view of the chest was acquired. COMPARISON: Chest 1 view dated 01/05/2021 FINDINGS: Surgical changes and devices: None. Lungs and pleura: No pleural effusions or pneumothorax. Lungs are clear. Diffuse emphysematous layne nge. Mediastinum: Mediastinal contours appear normal. Heart size is normal. Enlarged pulmonary aimee carlito aterally are consistent with pulmonary arterial hypertension. Bones and chest wall: No suspicious bony lesions. Overlying soft tissues appear unremarkable. 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 IMPRESSION: 1. Diffuse emphysematous change. 2. Pulmonary dural hypertension. 3. No evidence of acute pulmonary process. Reviewed by: Marvin Mercado MD on 02/15/2022 12:20 PM PDT Approved by: Marvin Mercado MD on 02/15/2022 12:20 PM PDT Station ID: [id number]
[2022-02-15 12:30] LABS: ALBUMIN 3.5 g/dL (3.2-5.5); ALBUMIN/GLOBULIN RATIO 1.3 (1.0-2.2); BILIRUBIN,TOTAL 0.4 mg/dL (0.2-1.0); CALCIUM 9.8 mg/dL (8.5-10.3); CREATININE 0.5 mg/dL (0.4-1.0); TOTAL PROTEIN 6.2 g/dL (6.7-8.2)
[2022-02-15 12:32] LABS: PLATELET ESTIMATE, MANUAL NORMAL (130-450,000) (NORMAL); PLATELET MORPHOLOGY NORMAL APPEARANCE (NORMAL)
[2022-02-15 13:05] LABS: B. PARAPERTUSSIS- RESP PCR PAN NOT DETECTED; B. PERTUSSIS- RESP PCR PANEL NOT DETECTED; C. PNEUMONIAE- RESP PCR PANEL NOT DETECTED; CORONAVIRUS 229E-RESP PCR NOT DETECTED; CORONAVIRUS HKU1-RESP PCR NOT DETECTED; CORONAVIRUS NL63-RESP PCR NOT DETECTED; CORONAVIRUS OC43-RESP PCR NOT DETECTED; HUMAN METAPNEUMOVIRUS NOT DETECTED; INFLUENZA A- RESP PCR PANEL NOT DETECTED; INFLUENZA B - RESP PCR PANEL NOT DETECTED; M. PNEUMONIAE- RESP PCR PANEL NOT DETECTED; PARAINFLUENZA VIRUS 1 NOT DETECTED; PARAINFLUENZA VIRUS 2 NOT DETECTED; PARAINFLUENZA VIRUS 3 NOT DETECTED; PARAINFLUENZA VIRUS 4 NOT DETECTED; RHINOVIRUS/ENTEROVIRUS NOT DETECTED; RSV- RESP PCR PANEL NOT DETECTED; SARS-CoV-2 -RESP PCR PANEL NOT DETECTED
[2022-02-15 13:47] VITALS: BP 111/62
== END 2022-02-15 14:19 | disposition home or self-care (01) ==
LOC: EDUNIT# → ED 11:47
DX: J44.1 Chronic obstructive pulmonary disease with (acute) exacerbation (principal); Z99.81 Dependence on supplemental oxygen; F17.200 Nicotine dependence, unspecified, uncomplicated; Z20.822 Contact with and (suspected) exposure to COVID-19
CPT/HCPCS: 36415; 80053; 85025; 87633; 93005; 94640; 96374; 99284

== ENCOUNTER 2022-07-20 15:44 | Outpatient (CLI) | payer MEDICARE | END 2022-07-20 15:45 | disposition left against medical advice (07) | LOC: EMS 15:44 | DX: R45.1 Restlessness and agitation (principal); R06.02 Shortness of breath ==

== ENCOUNTER 2022-07-26 13:32 | Outpatient (CLI) | payer MEDICARE | END 2022-07-26 13:33 | disposition left against medical advice (07) | LOC: EMS 13:32 | DX: R06.00 Dyspnea, unspecified (principal); Z99.81 Dependence on supplemental oxygen ==

== ENCOUNTER 2022-07-30 07:48 | Outpatient (CLI) | payer MEDICARE | END 2022-07-30 07:49 | disposition E | LOC: EMS 07:48 ==